=== PATIENT | male | born 1990 | race Caucasian/White ===

== ENCOUNTER 2025-05-31 16:25 | Emergency (ER) | payer OTHER, BC, SELFPAY ==
[2025-05-31 16:30] VITALS: BP 138/80; PULSE 78; RESP 18; TEMP 37.2; O2SAT 98; BMI 24.9
[2025-05-31] MEDS: Lidocaine 1% (20 ml mdv) 20 ML Vial INFILT (16:44)
--- NOTE | 2025-05-31 16:44 | EX.ED.GENINJ ---
HPI History of Present Illness Chief Complaint: Laceration Detail of Chief Complaint: Laceration dorsal surface mid right forearm Informant: patient Onset/Context/Timing Onset: Today and Hours Mechanism/Context: Incised (Cut on flashing) and Work Related Location of pain/injuries: Right forearm Quality of Pain: - (Not applicable) Location: Mid right forearm dorsal surface Current Severity: Gone Maximum Severity: Mild Worsened by: Initial laceration Relieved by: Not applicable Associated Symptoms Associated Symptoms: Negative for Parasthesias, Weakness, Loss of function or Inability to ambulate Narrative Narrative: Patient is a [id number] male presents with laceration dorsal surface of the right mid forearm. Patient denies paresthesia, anesthesia motors. Patient is on no medication. Patient has no allergies to medication. He has no other complaints. Prior similar symptoms: No Recent Illness/Hospitalization: No [facility] Medical History (Updated 05/31/25 @ 17:[address] Larry Styles MD) Eosinophilic esophagitis Medical History no medical history no medical history Home Medications ?Medication ?Instructions ?Recorded ?Last Taken ?Type No Known/Unobtainable [No Known 01/28/15 Unknown History Home Medications] Allergy/AdvReac Type Severity Reaction Status Date / Time No Known Allergies Allergy Verified 05/31/25 16:31 Social History Smoking Status: Never smoker [facility] ED Gastrointestinal Gastrointestinal: Denies nausea Integumentary Reports other Details: Laceration ; Denies abscess, Abrasions or rash Neurologic Neurologic: Denies paresthesias or weakness Hematologic/Lymphatic Hematologic/Lymphatic: Denies easy bleeding or easy bruising EXAM Physical Exam Const Vital Signs: 05/31/25 16:30 Temperature 98.9 F Temperature Source Oral Pulse Rate 78 Respiratory Rate 18 Blood Pressure 138/80 H Blood Pressure Mean 99 Pulse Ox 98 Oxygen Delivery Method Room Air Negative for well nourished or well developed General Appearance ED: NAD; Negative for well developed HEENT HEENT Narrative: Head is normocephalic. atraumatic Eyes PERRL and EOMs intact bilaterally Resp normal respiratory effort Cardio regular rhythm Rate: regular rate Extremity full ROM; Negative for normal to inspection Extremity Narrative: Median, radial and ulnar function intact. Radial pulses 2+. The fascia was not violated. To linear laceration for require repair. Neuro oriented x3, CN's II-XII intact bilaterally, no focal motor deficits and no sensory deficits noted Psych mental status grossly normal Skin Skin Narrative: Laceration right forearm PROC Procedures Other Procedures Procedure(s): Forearm laceration, 3.8 cm, linear. Patient was prepped sterile manner. Wound anesthetized with 1% lidocaine for local filtration. Total 2 cc was infiltrated. Wounds cleansed prior to repair by nurse. Since the fascia was not violated the skin was closed using 4-0 Ethilon. 5 horizontal stitches placed and 3 simple interrupted sutures placed. MDM MDM MDM Narrative Medical decision making narrative: Patient has a laceration which require repair. There is no indication for radiologic imaging or testing. Will anesthetize wound, irrigate and suture using 4-0 Ethilon. Will complete procedure note Discharge Plan Triage Chief Complaint: Laceration ED Provider: Larry Styles Dx/Rx/DC Orders Clinical Impression: Laceration of forearm, right, Elevated blood pressure reading without diagnosis of hypertension Instructions: ED Laceration Extremity Prescriptions: No Action No Known Home Medications Primary Care Provider: Care Physician,No Primary Referrals: Corporate,Care [Group of Physicians, Medical] - 10-14 Days suture removal Care Physician,No Primary [Primary Care Provider, Medical] Activity Restrictions/Additional Instructions: 1. Keep wound clean and dry for the next 48 to 72 hours. 2. Cleaned with peroxide and Q-tip twice a day then apply bacitracin ointment. 3. If there is any concern for infection follow-up with corporate care or return to the emergency Print Language: [place] Disposition Disposition: Home, Self Care
[2025-05-31 17:43] VITALS: BP 112/66; BP 117/68; PULSE 70; PULSE 78; RESP 14; TEMP 36.6; O2SAT 100; O2SAT 98
== END 2025-05-31 17:44 | disposition home or self-care (01) ==
PROVIDERS: Emergency Provider Emergency Medicine; Visit Provider Emergency Medicine
DX: S51.811A Laceration without foreign body of right forearm, initial encounter (principal); R03.0 Elevated blood-pressure reading, without diagnosis of hypertension; W26.8XXA Contact with other sharp object(s), not elsewhere classified, initial encounter; Y99.0 Civilian activity done for income or pay
CPT/HCPCS: 12002; 99284